=== PATIENT | female | born 1990 | race African-American/Black ===

== ENCOUNTER 2019-05-08 09:41 | Inpatient (IN) ==
--- NOTE | 2019-05-08 09:40 | HISTORY AND PHYSICAL ---
HISTORY OF PRESENT ILLNESS: Ms. Carrillo is a 28-year-old, G 2, P 1-0-0-1, at 38 weeks and 2 days, who presents to labor and delivery for a scheduled repeat delivery with bilateral tubal ligation. The patient reports good movement. Denies contractions, leakage of fluid, or vaginal bleeding. PAST MEDICAL HISTORY: Gestational diabetes controlled by medication, GDMA2. MEDICATION: Glyburide 2.5 mg a.c. meal. PAST SURGICAL HISTORY: section x1. FAMILY HISTORY: Noncontributory. SOCIAL HISTORY: Positive tobacco use. Denies alcohol or drug use. OB HISTORY: G 2, P 1-0-0-1, one prior delivery at term. ASSOCIATE PRINCIPAL HISTORY: Denies STD exposure. Menarche at age 11. PHYSICAL EXAMINATION: VITAL SIGNS: Temperature 98.5 degrees, blood pressure 129/80, height 5 feet 7 inches, weight 240 pounds, BMI 37.5 kg/m2. GENERAL: No acute distress. Alert, awake, oriented x3. RESPIRATORY: Clear to auscultation bilaterally. CARDIOVASCULAR: Regular rate and rhythm. ABDOMEN: Gravid, soft, nontender to palpation. EXTREMITIES: Lower extremities, negative calf tenderness. ASSESSMENT: Ms Carrillo is a 28-year-old, 2, para P 1-0-0-1, at 38 weeks and 2 days, who presents to labor and delivery for a scheduled repeat delivery with bilateral tubal ligation. PLAN: 1. Admit to labor and delivery for a repeat section with bilateral tubal ligation. 2. Obtain routine labs for scheduled repeat delivery. 3. Patient counseled on the risks, benefits, and alternatives of a repeat delivery with bilateral tubal ligation gestation, risks not limited to bleeding, infection, injury to surrounding organs including bowel, bladder, ureter. Risks also include regret, failure and ectopic for BTL 4. Obtain FHR pre and post spinal 5. Prophylactic antibiotics 1 hour prior to incision [facility]
[2019-05-08] MEDS ORDERED: REGLAN PO ONE ×2 (10:15→10:22)
[2019-05-08] MEDS ORDERED: KEFZOL 1 GM/D5W 1 GM/50 ML IVPB IV PRN (10:22)
[2019-05-08] MEDS ORDERED: PEPCID PO ONE (10:22)
[2019-05-08] MEDS ORDERED: LR 1,000 ML IV SCH ×2 (10:30→11:00)
[2019-05-08] MEDS ORDERED: BICITRA PO ONE (10:30)
[2019-05-08] MEDS ORDERED: PEPCID IV ONE (10:30)
[2019-05-08] MEDS ORDERED: SODIUM CHLORIDE 0.9% INJ ONE (10:30)
[2019-05-08 10:50] LABS: URINE SOURCE VOIDED
[2019-05-08 10:55] LABS: BILIRUBIN URINE NEGATIVE (NEGATIVE); BLOOD URINE NEGATIVE (NEGATIVE); COLOR ORANGE; GLUCOSE URINE NEGATIVE (NEGATIVE); KETONE URINE 10 mg/dL (NEGATIVE); LEUKOCYTES URINE MODERATE (NEGATIVE); NITRITE URINE NEGATIVE (NEGATIVE); PH URINE 6.5; PROTEIN URINE 70 mg/dL (NEGATIVE); SP GRAVITY URINE 1.026; TURBIDITY URINE TURBID (CLEAR); UROBILINOGEN URINE 2 mg/dL (NORMAL)
[2019-05-08 11:01] LABS: BASO# 0.02 X1000 (0.0-0.2); BASO% 0.3 % (0.0-0.8); EOS# 0.07 X1000 (0.0-0.7); EOS% 0.9 % (0.0-10.0); HEMATOCRIT 32.3 % (37.0-47.0); HEMOGLOBIN 10.4 g/dL (12.0-16.0); IMM GRAN# 0.02 X1000 (0.0-0.04); IMM GRAN% 0.3 % (0.0-0.5); LYMPH# 1.57 X1000 (1.2-3.4); LYMPH% 21.1 % (20.5-51.1); MCH 26.7 PG (27-31); MCHC 32.2 g/dL (33-37); MCV 82.8 FL (81-99); MONO# 0.42 X1000 (0.11-0.59); MONO% 5.6 % (1.7-9.3); NEUT# 5.34 X1000 (1.4-6.5); NEUT% 71.8 % (42.2-75.2); PLT 207 X1000 (130-400); RDW 14.1 % (11.5-14.5); WBC 7.44 X1000 (4.8-10.8)
[2019-05-08] MEDS ORDERED: EPHEDRINE ONE (11:31)
[2019-05-08] MEDS ORDERED: PITOCIN ONE ×3 (11:31→12:42)
[2019-05-08] MEDS ORDERED: ZOFRAN ONE (11:31)
[2019-05-08] MEDS ORDERED: FENTANYL ONE (11:48)
[2019-05-08 12:25] LABS: UR AMPHETAMINES QUAL NONE DETECTED (NONE DETECT); UR BARBITUATES QUAL NONE DETECTED (NONE DETECT); UR BENZODIAZEPIN QUAL NONE DETECTED (NONE DETECT); UR CANNABINOIDS QUAL NONE DETECTED (NONE DETECT); UR COCAINE QUAL NONE DETECTED (NONE DETECT); UR METHADONE QUAL NONE DETECTED (NONE DETECT); UR OPIATES QUAL NONE DETECTED (NONE DETECT); UR OXYCODONE QUAL NONE DETECTED (NONE DETECT); UR PCP QUAL NONE DETECTED (NONE DETECT)
[2019-05-08] MEDS ORDERED: TORADOL ONE (12:26)
[2019-05-08] MEDS ORDERED: DEMEROL IM PRN (13:26)
[2019-05-08] MEDS ORDERED: PITOCIN 20 UNITS/NS 20 UNITS/1,000 ML IV.SOLN IV ONE (13:26)
[2019-05-08] MEDS ORDERED: BOOSTRIX VACCINE IM ONE (13:26)
[2019-05-08] MEDS ORDERED: MYLICON PO PRN (13:26)
[2019-05-08] MEDS ORDERED: AMBIEN PO PRN (13:26)
[2019-05-08] MEDS ORDERED: NORCO-10 PO PRN (13:26)
[2019-05-08] MEDS ORDERED: ATARAX PO PRN (13:26)
[2019-05-08] MEDS ORDERED: DEMEROL PO PRN ×2 (13:26)
[2019-05-08] MEDS ORDERED: MOTRIN PO PRN (13:26)
[2019-05-08] MEDS ORDERED: PITOCIN IM PRN (13:26)
[2019-05-08] MEDS ORDERED: M-M-R II VACCINE SUBQ ONE (13:26)
[2019-05-08] MEDS ORDERED: DULCOLAX PR PRN (13:26)
[2019-05-08] MEDS ORDERED: PHENERGAN IM PRN (13:26)
[2019-05-08] MEDS ORDERED: HYDROXYZINE IM PRN (13:26)
[2019-05-08] MEDS ORDERED: BENADRYL IV PRN (14:00)
[2019-05-08] MEDS ORDERED: SODIUM CHLORIDE 0.9% INJ PRN (14:00)
[2019-05-08] MEDS ORDERED: PHENERGAN IV PRN (14:00)
[2019-05-08] MEDS ORDERED: NARCAN IV PRN (14:00)
[2019-05-08] MEDS: MORPHINE PCA IV PRN (14:22)
[2019-05-08] MEDS ORDERED: DEMEROL IM ONE (15:48)
[2019-05-08] MEDS ORDERED: PHENERGAN IM ONE (15:49)
[2019-05-08] MEDS: OFIRMEV 1000 MG/ISOTONIC SOLN 1,000 MG/100 ML BOTTLE IV SCH ×2 (16:56→23:24)
[2019-05-08] MEDS: PITOCIN 10 UNITS/NS 1,000 ML IV SCH (18:17)
--- NOTE | 2019-05-08 20:23 | OB/GYN PROGRESS NOTE ---
OB Physical Exam Vital Signs - 8 hr 05/08/19 13:20 05/08/19 13:30 05/08/19 13:40 Temperature 97.6 F Pulse Rate 58 L 69 Pulse Rate [Left] 60 Respiratory Rate 18 18 18 Blood Pressure 136/82 Blood Pressure [Right Arm] 136/82 136/82 146/75 O2 Sat by Pulse Oximetry 100 100 05/08/19 13:50 05/08/19 14:00 05/08/19 14:10 Temperature Pulse Rate 69 60 65 Pulse Rate [Left] Respiratory Rate 18 18 18 Blood Pressure Blood Pressure [Right Arm] 143/76 183/71 142/87 O2 Sat by Pulse Oximetry 100 100 99 05/08/19 14:20 05/08/19 14:30 05/08/19 14:40 Temperature Pulse Rate 61 60 62 Pulse Rate [Left] Respiratory Rate 18 18 18 Blood Pressure Blood Pressure [Right Arm] 144/90 151/90 145/89 O2 Sat by Pulse Oximetry 100 100 100 05/08/19 14:50 05/08/19 15:10 05/08/19 15:40 Temperature Pulse Rate 69 72 92 H Pulse Rate [Left] Respiratory Rate 18 18 Blood Pressure 146/87 151/85 Blood Pressure [Right Arm] 147/83 O2 Sat by Pulse Oximetry 100 18 L 100 05/08/19 16:10 05/08/19 16:40 05/08/19 17:40 Temperature Pulse Rate 82 97 H 99 H Pulse Rate [Left] Respiratory Rate 18 18 18 Blood Pressure 140/78 134/68 127/65 Blood Pressure [Right Arm] O2 Sat by Pulse Oximetry 98 - CONSTITUTIONAL General Appearance: alert, no apparent distress, severe distress - EYES Eyes: PERRL/EOMI, pink conjunctivae - HEAD, EARS, NOSE, MOUTH & THROAT HENMT: normocephalic/atraumatic, moist mucous membranes, normal ENT inspection, TMs normal, pharynx normal - NECK Neck: non-tender, full range of motion, supple, normal inspection - RESPIRATORY Respiratory: chest non-tender, lungs clear, normal breath sounds, no pleuratic chest pain, no respiratory distress, no accessory muscle use - CARDIOVASCULAR Cardiovascular: normal peripheral pulses, regular rate, rhythm, no edema, no gallop, no JVD, no murmur - GASTROINTESTINAL (ABDOMEN) Abdominal Exam: normal bowel sounds, non tender, soft, no organomegaly, no pulsatile mass - GENITOURINARY Cervica Dilation: [id number] Female Genitalia/Pelvic Exam: deferred - MUSCULOSKELETAL Back Exam: normal inspection, no CVA tenderness, no vertebral tenderness Extremity: normal range of motion, non-tender, normal gait, normal inspection, no pedal edema, no calf tenderness, normal capillary refill, pelvis stable Peripheral Pulses: radial (R): 3+ (bounding) - SKIN Integumentary: normal color, normal turgor, warm/dry - NEUROLOGIC Neurologic: accounts payable specialist II-XII nml as tested, no motor/sensory deficits - PSYCHIATRIC Psych/Mental Status: normal mood/affect, normal thought content, normal thought process, oriented x 3 Active Medications Generic Name Dose Route Start Last Admin Trade Name Freq PRN Reason Stop Dose Admin Hydrocodone Bitart/Acetaminophen 1 each 05/08/19 13:26 [place]-10 PO Q3-4H PRN PRN Pain (7-10 on Pain Scale) Bisacodyl 10 mg 05/08/19 13:26 Dulcolax MD PRN PRN gas unrelieved by Mylicon Diphenhydramine HCl 12.5 - 25 mg 05/08/19 14:00 Benadryl IV Q6H PRN PRN Itching Hydroxyzine HCl 50 mg 05/08/19 13:26 Atarax PO Q3-4H PRN PRN Nausea Hydroxyzine HCl 50 mg 05/08/19 13:26 Hydroxyzine IM Q3-4H PRN PRN Nausea Lactated Ringer's 1,000 mls @ 42 mls/hr 05/08/19 11:00 Lr IV .[id number] ILEANA Lactated Ringer's 1,000 mls @ 0 mls/hr 05/08/19 10:30 05/08/19 10:42 Lr IV 999 mls/hr .Q0M ILEANA Administration As Directed Cefazolin Sodium/Dextrose 1 gm in 50 mls @ 100 mls/hr 05/08/19 10:22 Kefzol 1 Gm/D5w IV ONCE PRN PRN section Oxytocin/Sodium Chloride 1,000 mls @ 125 mls/hr 05/08/19 21:00 05/08/19 18:17 Pitocin 10 Units/Ns IV 05/09/19 12:59 125 mls/hr .Q8H ILEANA Administration Oxytocin/Sodium Chloride 20 units in 1,000 mls @ 125 mls/hr 05/08/19 13:26 Pitocin 20 Units/Ns IV 05/08/19 21:25 .Q8H ONE Lactated Ringer's 1,000 mls @ 125 mls/hr 05/09/19 13:26 Lr IV .Q8H ILEANA Acetaminophen 1,000 mg in 100 mls @ 400 mls/hr 05/08/19 15:45 05/08/19 16:56 Ofirmev 1000 Mg/Isotonic Soln IV 400 mls/hr Q6H ILEANA Administration Ibuprofen 800 mg 05/08/19 13:26 Motrin PO Q8H PRN PRN Pain Ketorolac Tromethamine 30 mg 05/08/19 18:00 Toradol IV Q6H ILEANA Meperidine HCl 50 mg 05/08/19 13:26 Demerol PO Q4H PRN PRN Pain (1-6 on Pain Scale) Meperidine HCl 50 mg 05/08/19 13:26 Demerol IM Q3H PRN PRN Pain Meperidine HCl 100 mg 05/08/19 13:26 Demerol PO Q4H PRN PRN Pain (7-10 on Pain Scale) Morphine Sulfate 0 mg 05/08/19 14:00 05/08/19 14:22 Morphine Manager Lab IV 30 mg PRN PRN Administration Pain Naloxone HCl 0.2 mg 05/08/19 14:00 Narcan IV PRN PRN DECREASED RESPIRATORY RATE Oxytocin 20 unit 05/08/19 13:26 Pitocin IM PRN PRN Severe bleeding Promethazine HCl 12.5 mg 05/08/19 14:00 Phenergan IV Q6H PRN PRN Nausea Senna/Docusate Sodium 1 each 05/08/19 21:00 Pericolace PO QHS ILEANA Simethicone 80 mg 05/08/19 13:26 Mylicon PO PRN PRN GAS Simethicone 80 mg 05/08/19 18:00 Mylicon PO PC + HS ILEANA Sodium Chloride 10 ml 05/08/19 14:00 Sodium Chloride 0.9% INJ PRN PRN TO DILUTE PHENERGAN FOR IV USE Zolpidem Tartrate 10 mg 05/08/19 13:26 Ambien PO HS PRN PRN Sleep Laboratory Results - last 24 hr 05/08/19 05/08/19 05/08/19 10:00 10:00 10:30 WBC RBC Hgb Hct MCV MCH MCHC RDW Std Deviation Plt Count MPV Immature Gran % (Auto) Neut % (Auto) Lymph % (Auto) [place] % (Auto) Eos % (Auto) Baso % (Auto) Immature Gran # (Auto) Neut # (Auto) Lymph # (Auto) [place] # (Auto) Eos # (Auto) Baso # (Auto) Glucose Urine Source VOIDED Urine Color ORANGE Urine Turbidity TURBID Urine pH 6.5 Ur Specific [place] 1.026 Urine Protein 70 A Ur Glucose (Stick) NEGATIVE Ur Ketones (Stick) 10 A Urine Blood NEGATIVE Urine Nitrite NEGATIVE Urine Bilirubin NEGATIVE Urobilinogen Dipstick 2 A Urine Leukocytes MODERATE A Urine Opiates Screen NONE DETECTED Ur Oxycodone Screen NONE DETECTED Ur Methadone, Qual NONE DETECTED Ur Barbiturates Screen NONE DETECTED Ur Phencyclidine Scrn NONE DETECTED Ur Amphetamines Screen NONE DETECTED U Benzodiazepines Scrn NONE DETECTED Urine Cocaine Screen NONE DETECTED U Cannabinoids Screen NONE DETECTED RPR NON-REACTIVE Blood Type Antibody Screen 05/08/19 05/08/19 05/08/19 10:30 10:30 10:30 WBC 7.44 RBC 3.90 L Hgb 10.4 L Hct 32.3 L MCV 82.8 MCH 26.7 L MCHC 32.2 L RDW Std Deviation 14.1 Plt Count 207 MPV 11.0 H Immature Gran % (Auto) 0.3 Neut % (Auto) 71.8 Lymph % (Auto) 21.1 [place] % (Auto) 5.6 Eos % (Auto) 0.9 Baso % (Auto) 0.3 Immature Gran # (Auto) 0.02 Neut # (Auto) 5.34 Lymph # (Auto) 1.57 [place] # (Auto) 0.42 Eos # (Auto) 0.07 Baso # (Auto) 0.02 Glucose 70 Urine Source Urine Color Urine Turbidity Urine pH Ur Specific [place] Urine Protein Ur Glucose (Stick) Ur Ketones (Stick) Urine Blood Urine Nitrite Urine Bilirubin Urobilinogen Dipstick Urine Leukocytes Urine Opiates Screen Ur Oxycodone Screen Ur Methadone, Qual Ur Barbiturates Screen Ur Phencyclidine Scrn Ur Amphetamines Screen U Benzodiazepines Scrn Urine Cocaine Screen U Cannabinoids Screen RPR Blood Type O POSITIVE Antibody Screen NEGATIVE
[2019-05-08] MEDS: TORADOL IV SCH (20:36)
--- NOTE | 2019-05-08 21:43 | OPERATIVE NOTE ---
PROCEDURE DATE: 05/08/2019 SURGEON: Dr. [place] Watt. CLAMP TRUCK DRIVER: Brooke Mclaughlin. PREOPERATIVE DIAGNOSIS: 1. Intrauterine at 38 weeks and 2 days. 2. Gestational diabetes mellitus A2 gestational diabetes controlled by medication. 3. Previous delivery. 4. Desires female permanent sterilization. POSTOPERATIVE DIAGNOSIS: 1. Intrauterine at 38 weeks and 2 days. 2. Gestational diabetes mellitus A2 gestational diabetes controlled by medication. 3. Previous delivery. 4. Desires female permanent sterilization. PROCEDURE PERFORMED: Repeat low transverse section with bilateral tubal ligation. ANESTHESIA: Spinal. ESTIMATED BLOOD LOSS: 700 mL. SURGICAL RISKS: The patient was informed of risks and benefits of procedure. Risks included but were not limited to bleeding, infection, injury to internal organs and possible hysterectomy. Patient expressed understanding of risks involved. All questions were answered and the patient consented to procedure. DESCRIPTION OF PROCEDURE: Patient was taken to the operating room where a time-out was performed to confirm correct patient, correct procedure. Spinal anesthesia was adequately established and prophylactic intravenous antibiotics was administered. The patient was then placed in a dorsal supine position with a left tilt of the hips. The patient was then prepped and draped in the usual sterile fashion for a Pfannenstiel skin incision. An incision was made in the skin with a surgical scalpel. Sharp dissection was carried out over subsequent layers of tissue including the fascia followed by the Bovie electrocautery for hemostasis. The fascia was incised at the midline and the fascial incision was extended bilaterally using the Bovie electrocautery. The inferior edge of the fascial incision was grasped with Ligia clamps, tented up and the underlying rectus muscles were dissected off using the Bovie electrocautery. Attention was then turned to the superior edge which was grasped with Ligia clamps, tented up and the underlying rectus muscle dissected off bluntly using the Bovie electrocautery. The rectus muscles were then divided at the midline and the peritoneum was identified and entered at its superior margin taking care to avoid the bladder. The peritoneal incision was extended superiorly and inferiorly using Bovie electrocautery with good visualization of the bladder. The bladder blade was inserted and the vesicouterine peritoneum was identified, grasped with smooth pickups and cut laterally to both sides using Metzenbaum scissors. A bladder flap was then created using blunt and sharp dissection with the Metzenbaum scissors. The bladder blade was reinserted and a transverse incision was made in the lower uterine segment using the scalpel. The uterine incision was extended bilaterally using blunt dissection. The amniotic sac was entered and the amniotic fluid was noted to be clear. The surgeon's hand was then placed in the uterine cavity. The head was identified elevated into the abdomen and delivered through the uterine incision with the assistance of fundal pressure. The was examined for nuchal cord and no nuchal cord was identified. The infant was then delivered with traction and the assistance of fundal pressure. The oral and nasal passages were bulb suctioned. On delivery the cord was clamped and cut. The infant was then passed off the table to the waiting cadastral engineer staff for further care. Cord blood was obtained for blood analysis. The placenta was manually extracted intact with a 3-vessel cord. Oxytocin was administered by IV infusion to enhance uterine contraction. The uterus was exteriorized and cleared of all clots and remaining products of conception. The uterine incision was reapproximated using 0 Vicryl suture in a running locked fashion. Non hemostatic areas were reinforced with 0 Vicryl in a [id number] stitch. Good hemostasis was confirmed. Attention was then turned to the bilateral tubes for female sterilization. After the identification of both fallopian tubes and fimbriated ends a Callender clamp was used to grasp the right fallopian tube at the ampulla. The Bovie electrocautery was used to clear a hole in the medial salpinx directly below the elevated portion of the fallopian tube and the fallopian tube was suture ligated with 0 chromic at either end. The 2 cm portion of fallopian tube between the sutures were then excised using Metzenbaum scissors and sent to Pathology. The identical procedure was performed on the other side and hemostasis was obtained using Bovie electrocautery bilaterally. The uterus was then replaced into the abdomen and the pericolic gutters were cleared of all clots. Surgicel was applied to the lower uterine segment to reinforce hemostasis. The fascia was then reapproximated using 0 Vicryl in a running nonlocked fashion. The subcutaneous fat was reapproximated using 2-0 plain gut in a running nonlocked fashion and the skin was reapproximated using 4-0 Biosyn on a Dionte needle in a running subcuticular stitch. All needle, sponge, and instrument counts were noted to be correct x2 at the end of the procedure. The patient tolerated the procedure well and was transferred to recovery room in stable condition.
[2019-05-08] MEDS: MYLICON PO SCH (23:37)
[2019-05-08] MEDS: PERICOLACE PO SCH (23:37)
[2019-05-09] MEDS: TORADOL IV SCH ×3 (02:13→13:42)
[2019-05-09] MEDS: PITOCIN 10 UNITS/NS 1,000 ML IV SCH (03:50)
[2019-05-09] MEDS: MORPHINE PCA IV PRN (04:43)
[2019-05-09] MEDS: OFIRMEV 1000 MG/ISOTONIC SOLN 1,000 MG/100 ML BOTTLE IV SCH ×2 (04:51→11:06)
[2019-05-09 06:37] LABS: BASO# 0.02 X1000 (0.0-0.2); BASO% 0.2 % (0.0-0.8); EOS# 0.05 X1000 (0.0-0.7); EOS% 0.5 % (0.0-10.0); HEMATOCRIT 30.1 % (37.0-47.0); HEMOGLOBIN 9.6 g/dL (12.0-16.0); IMM GRAN# 0.04 X1000 (0.0-0.04); IMM GRAN% 0.4 % (0.0-0.5); LYMPH# 1.89 X1000 (1.2-3.4); LYMPH% 17.9 % (20.5-51.1); MCH 26.9 PG (27-31); MCHC 31.9 g/dL (33-37); MCV 84.3 FL (81-99); MONO# 0.81 X1000 (0.11-0.59); MONO% 7.7 % (1.7-9.3); MPV 11.1 FL (7.4-10.4); NEUT# 7.73 X1000 (1.4-6.5); NEUT% 73.3 % (42.2-75.2); PLT 203 X1000 (130-400); RBC 3.57 XMIL (4.2-5.4); RDW 14.2 % (11.5-14.5); WBC 10.54 X1000 (4.8-10.8)
[2019-05-09] MEDS: MYLICON PO SCH ×4 (11:05→20:22)
--- NOTE | 2019-05-09 12:40 | OB/GYN PROGRESS NOTE ---
- Subjective Pt seen and examined. Pain well controlled with FLAVOR TANK TENDER. Tolerating clears diet, denies n/v. Denies ambulation and villanueva recently removed. Denies flatus or BM. +bottle feeding. OB Physical Exam Vital Signs - 8 hr 05/09/19 07:24 05/09/19 12:00 Temperature 97.7 F 97.9 F Pulse Rate 90 94 H Respiratory Rate 18 18 Blood Pressure 118/62 130/78 O2 Sat by Pulse Oximetry 95 94 L - CONSTITUTIONAL General Appearance: appears well, alert, no apparent distress - RESPIRATORY Respiratory: lungs clear, normal breath sounds - CARDIOVASCULAR Cardiovascular: regular rate, rhythm - GASTROINTESTINAL (ABDOMEN) Abdominal Exam: soft (FF at umbilicus), tenderness (appropriately tender). negative: guarding, rigid, rebound - MUSCULOSKELETAL Extremity: non-tender - SKIN Integumentary: normal color, warm/dry (incision c/d/i) - PSYCHIATRIC Psych/Mental Status: normal mood/affect, oriented x 3 Active Medications Generic Name Dose Route Start Last Admin Trade Name Freq PRN Reason Stop Dose Admin Hydrocodone Bitart/Acetaminophen 1 each 05/08/19 13:26 [place]-10 PO Q3-4H PRN PRN Pain (7-10 on Pain Scale) Bisacodyl 10 mg 05/08/19 13:26 Dulcolax [place] PRN PRN gas unrelieved by Mylicon Diphenhydramine HCl 12.5 - 25 mg 05/08/19 14:00 Benadryl IV Q6H PRN PRN Itching Hydroxyzine HCl 50 mg 05/08/19 13:26 Atarax PO Q3-4H PRN PRN Nausea Hydroxyzine HCl 50 mg 05/08/19 13:26 Hydroxyzine IM Q3-4H PRN PRN Nausea Lactated Ringer's 1,000 mls @ 42 mls/hr 05/08/19 11:00 Lr IV .[id number] ILEANA Lactated Ringer's 1,000 mls @ 0 mls/hr 05/08/19 10:30 05/08/19 10:42 Lr IV 999 mls/hr .Q0M ILEANA Administration As Directed Cefazolin Sodium/Dextrose 1 gm in 50 mls @ 100 mls/hr 05/08/19 10:22 Kefzol 1 Gm/D5w IV ONCE PRN PRN section Oxytocin/Sodium Chloride 1,000 mls @ 125 mls/hr 05/08/19 21:00 05/09/19 03:50 Pitocin 10 Units/Ns IV 05/09/19 12:59 125 mls/hr .Q8H ILEANA Administration Lactated Ringer's 1,000 mls @ 125 mls/hr 05/09/19 13:26 Lr IV .Q8H ILEANA Acetaminophen 1,000 mg in 100 mls @ 400 mls/hr 05/08/19 15:45 05/09/19 11:06 Ofirmev 1000 Mg/Isotonic Soln IV 400 mls/hr Q6H ILEANA Administration Ibuprofen 800 mg 05/08/19 13:26 Motrin PO Q8H PRN PRN Pain Ketorolac Tromethamine 30 mg 05/08/19 18:00 05/09/19 07:59 Toradol IV 30 mg Q6H ILEANA Administration Meperidine HCl 50 mg 05/08/19 13:26 Demerol PO Q4H PRN PRN Pain (1-6 on Pain Scale) Meperidine HCl 50 mg 05/08/19 13:26 Demerol IM Q3H PRN PRN Pain Meperidine HCl 100 mg 05/08/19 13:26 Demerol PO Q4H PRN PRN Pain (7-10 on Pain Scale) Morphine Sulfate 0 mg 05/08/19 14:00 05/09/19 04:43 Morphine Loss Prevention Operations Manager IV 30 mg PRN PRN Administration Pain Naloxone HCl 0.2 mg 05/08/19 14:00 Narcan IV PRN PRN DECREASED RESPIRATORY RATE Oxytocin 20 unit 05/08/19 13:26 Pitocin IM PRN PRN Severe bleeding Promethazine HCl 12.5 mg 05/08/19 14:00 Phenergan IV Q6H PRN PRN Nausea Senna/Docusate Sodium 1 each 05/08/19 21:00 05/08/19 23:37 Pericolace PO Not Given QHS ILEANA Simethicone 80 mg 05/08/19 13:26 Mylicon PO PRN PRN GAS Simethicone 80 mg 05/08/19 18:00 05/09/19 11:05 Mylicon PO 80 mg PC + HS ILEANA Administration Sodium Chloride 10 ml 05/08/19 14:00 Sodium Chloride 0.9% INJ PRN PRN TO DILUTE PHENERGAN FOR IV USE Zolpidem Tartrate 10 mg 05/08/19 13:26 Ambien PO HS PRN PRN Sleep Laboratory Results - last 24 hr 05/09/19 05:56 WBC 10.54 RBC 3.57 L Hgb 9.6 L Hct 30.1 L MCV 84.3 MCH 26.9 L MCHC 31.9 L RDW Std Deviation 14.2 Plt Count 203 MPV 11.1 H Immature Gran % (Auto) 0.4 Neut % (Auto) 73.3 Lymph % (Auto) 17.9 L [place] % (Auto) 7.7 Eos % (Auto) 0.5 Baso % (Auto) 0.2 Immature Gran # (Auto) 0.04 Neut # (Auto) 7.73 H Lymph # (Auto) 1.89 [place] # (Auto) 0.81 H Eos # (Auto) 0.05 Baso # (Auto) 0.02 OB Assessment & Plan (1) delivery delivered Status: Acute Plan: 28yo POD#1 s/p repeat CD with BTL -pain well controlled on FLAVOR TANK TENDER, will d/c and start PO pain meds -Advance diet with flatus -OOB to ambulation -Con't routine PP care -f/u in office [address] Watt
[2019-05-09] MEDS ORDERED: MOTRIN PO SCH (13:00)
[2019-05-09] MEDS ORDERED: LR 1,000 ML IV SCH (13:26)
[2019-05-09] MEDS: PERCOCET-10 PO PRN (21:31)
[2019-05-09] MEDS: MOTRIN PO PRN (22:30)
[2019-05-10] MEDS: PERCOCET-10 PO PRN ×4 (04:16→21:32)
[2019-05-10] MEDS: PERICOLACE PO SCH ×2 (04:18→21:24)
[2019-05-10] MEDS: MOTRIN PO PRN ×3 (07:04→23:58)
--- NOTE | 2019-05-10 07:46 | OB/GYN PROGRESS NOTE ---
- Subjective 28 yo POD#2 s/p Rpt C/S with BTL at 38w2d with A2-GDM Patient seen and examined. Pain controlled with PO medications. She is ambulating in the silver and voiding without difficulty. She is passing flatus, no BM yet. She is tolerating a regular diet, denies nausea/vomiting. She notes minimal lochia. She denies any fever/chills. She is bottle feeding. OB Physical Exam Vital Signs - 8 hr 05/10/19 00:16 05/10/19 04:20 Temperature 97.0 F L 96.5 F L Pulse Rate 78 71 Respiratory Rate 16 20 Blood Pressure 132/73 123/81 O2 Sat by Pulse Oximetry 100 97 - CONSTITUTIONAL General Appearance: appears well, alert, no apparent distress - EYES Eyes: PERRL/EOMI - HEAD, EARS, NOSE, MOUTH & THROAT HENMT: normocephalic/atraumatic - RESPIRATORY Respiratory: lungs clear, normal breath sounds, no respiratory distress - CARDIOVASCULAR Cardiovascular: regular rate, rhythm, no murmur - GASTROINTESTINAL (ABDOMEN) Abdominal Exam: normal bowel sounds, soft, other (ATTP, fundus firm/below umbilicus Pfannensteil skin incision c/d/i with steri-strips) - MUSCULOSKELETAL Extremity: normal range of motion, non-tender, normal gait - PSYCHIATRIC Psych/Mental Status: normal mood/affect Active Medications Generic Name Dose Route Start Last Admin Trade Name Freq PRN Reason Stop Dose Admin Hydrocodone Bitart/Acetaminophen 1 each 05/08/19 13:26 05/09/19 16:53 [place]-10 PO 1 each Q3-4H PRN PRN Administration Pain (7-10 on Pain Scale) Bisacodyl 10 mg 05/08/19 13:26 Dulcolax [place] PRN PRN gas unrelieved by Mylicon Hydroxyzine HCl 50 mg 05/08/19 13:26 Atarax PO Q3-4H PRN PRN Nausea Hydroxyzine HCl 50 mg 05/08/19 13:26 Hydroxyzine IM Q3-4H PRN PRN Nausea Ibuprofen 800 mg 05/09/19 22:45 05/10/19 07:04 Motrin PO 800 mg Q8H PRN PRN Administration Meperidine HCl 50 mg 05/08/19 13:26 Demerol PO Q4H PRN PRN Pain (1-6 on Pain Scale) Meperidine HCl 50 mg 05/08/19 13:26 Demerol IM Q3H PRN PRN Pain Meperidine HCl 100 mg 05/08/19 13:26 Demerol PO Q4H PRN PRN Pain (7-10 on Pain Scale) Naloxone HCl 0.2 mg 05/08/19 14:00 Narcan IV PRN PRN DECREASED RESPIRATORY RATE Oxycodone/Acetaminophen 1 each 05/09/19 12:44 05/10/19 04:16 Percocet-10 PO 1 each Q4H PRN PRN Administration Pain Oxytocin 20 unit 05/08/19 13:26 Pitocin IM PRN PRN Severe bleeding Promethazine HCl 12.5 mg 05/08/19 14:00 Phenergan IV Q6H PRN PRN Nausea Senna/Docusate Sodium 1 each 05/08/19 21:00 05/10/19 04:18 Pericolace PO Not Given QHS ILEANA Simethicone 80 mg 05/08/19 13:26 Mylicon PO PRN PRN GAS Simethicone 80 mg 05/08/19 18:00 05/09/19 20:22 Mylicon PO 80 mg PC + HS ILEANA Administration Sodium Chloride 10 ml 05/08/19 14:00 Sodium Chloride 0.9% INJ PRN PRN TO DILUTE PHENERGAN FOR IV USE Zolpidem Tartrate 10 mg 05/08/19 13:26 Ambien PO HS PRN PRN Sleep Laboratory Tests 05/08/19 05/08/19 05/08/19 10:00 10:00 10:30 WBC RBC Hgb Hct MCV MCH MCHC RDW Std Deviation Plt Count MPV Immature Gran % (Auto) Neut % (Auto) Lymph % (Auto) [place] % (Auto) Eos % (Auto) Baso % (Auto) Immature Gran # (Auto) Neut # (Auto) Lymph # (Auto) [place] # (Auto) Eos # (Auto) Baso # (Auto) Glucose Urine Source VOIDED Urine Color ORANGE Urine Turbidity TURBID Urine pH 6.5 Ur Specific [place] 1.026 Urine Protein 70 A Ur Glucose (Stick) NEGATIVE Ur Ketones (Stick) 10 A Urine Blood NEGATIVE Urine Nitrite NEGATIVE Urine Bilirubin NEGATIVE Urobilinogen Dipstick 2 A Urine Leukocytes MODERATE A Urine Opiates Screen NONE DETECTED Ur Oxycodone Screen NONE DETECTED Ur Methadone, Qual NONE DETECTED Ur Barbiturates Screen NONE DETECTED Ur Phencyclidine Scrn NONE DETECTED Ur Amphetamines Screen NONE DETECTED U Benzodiazepines Scrn NONE DETECTED Urine Cocaine Screen NONE DETECTED U Cannabinoids Screen NONE DETECTED RPR NON-REACTIVE Blood Type Antibody Screen 05/08/19 05/08/19 05/08/19 10:30 10:30 10:30 WBC 7.44 RBC 3.90 L Hgb 10.4 L Hct 32.3 L MCV 82.8 MCH 26.7 L MCHC 32.2 L RDW Std Deviation 14.1 Plt Count 207 MPV 11.0 H Immature Gran % (Auto) 0.3 Neut % (Auto) 71.8 Lymph % (Auto) 21.1 [place] % (Auto) 5.6 Eos % (Auto) 0.9 Baso % (Auto) 0.3 Immature Gran # (Auto) 0.02 Neut # (Auto) 5.34 Lymph # (Auto) 1.57 [place] # (Auto) 0.42 Eos # (Auto) 0.07 Baso # (Auto) 0.02 Glucose 70 Urine Source Urine Color Urine Turbidity Urine pH Ur Specific [place] Urine Protein Ur Glucose (Stick) Ur Ketones (Stick) Urine Blood Urine Nitrite Urine Bilirubin Urobilinogen Dipstick Urine Leukocytes Urine Opiates Screen Ur Oxycodone Screen Ur Methadone, Qual Ur Barbiturates Screen Ur Phencyclidine Scrn Ur Amphetamines Screen U Benzodiazepines Scrn Urine Cocaine Screen U Cannabinoids Screen RPR Blood Type O POSITIVE Antibody Screen NEGATIVE 05/09/19 05:56 WBC 10.54 RBC 3.57 L Hgb 9.6 L Hct 30.1 L MCV 84.3 MCH 26.9 L MCHC 31.9 L RDW Std Deviation 14.2 Plt Count 203 MPV 11.1 H Immature Gran % (Auto) 0.4 Neut % (Auto) 73.3 Lymph % (Auto) 17.9 L [place] % (Auto) 7.7 Eos % (Auto) 0.5 Baso % (Auto) 0.2 Immature Gran # (Auto) 0.04 Neut # (Auto) 7.73 H Lymph # (Auto) 1.89 [place] # (Auto) 0.81 H Eos # (Auto) 0.05 Baso # (Auto) 0.02 Glucose Urine Source Urine Color Urine Turbidity Urine pH Ur Specific [place] Urine Protein Ur Glucose (Stick) Ur Ketones (Stick) Urine Blood Urine Nitrite Urine Bilirubin Urobilinogen Dipstick Urine Leukocytes Urine Opiates Screen Ur Oxycodone Screen Ur Methadone, Qual Ur Barbiturates Screen Ur Phencyclidine Scrn Ur Amphetamines Screen U Benzodiazepines Scrn Urine Cocaine Screen U Cannabinoids Screen RPR Blood Type Antibody Screen OB Assessment & Plan (1) GDM, class A2 Status: Acute Plan: BG WNL, glyburide discontinued, plan to check 2 hr GTT at 6 week PP visit (2) delivery delivered Status: Acute Plan: 28 yo POD#2 s/p Rpt C/S with BTL at 38w2d with A2-GDM 1. HD stable, afebrile 2. Routine PP care 3. Bottle feeding 4. Encourage ambulation/shower today 5. Anticipate d/c home tomorrow
[2019-05-10] MEDS: MYLICON PO SCH ×5 (09:08→21:24)
[2019-05-10] MEDS ORDERED: MORPHINE IM ONE (10:39)
[2019-05-11] MEDS: PERCOCET-10 PO PRN ×2 (02:31→09:30)
[2019-05-11] MEDS ORDERED: FERROUS SULFATE PO SCH (09:00)
[2019-05-11] MEDS: MOTRIN PO PRN (09:24)
[2019-05-11 09:47] VITALS: BP 132/78
== END 2019-05-11 10:20 | disposition home or self-care (01) | DRG 785 ==
LOC: LD 09:41
PROVIDERS: ADMIT Obstetrics & Gynecology; ATTEND Obstetrics & Gynecology